=== PATIENT | male | born 1985 | race Two or more races ===

== ENCOUNTER 2016-11-07 03:53 | Emergency (ER) | payer SELFPAY ==
[~2016-11-07] VITALS: Ht 170.2 cm; Wt 70.3 kg
[2016-11-07] MEDS ORDERED: TDAP DIPH,PERTUSS,TET VAC/PF 0.5 ML DISP.SYRIN IM ONE ×2 (04:45→05:01)
[2016-11-07] MEDS ORDERED: HYDROCODONE/APAP 5-325MG TABLET PO ONE ×2 (04:45→05:45)
[2016-11-07] MEDS ORDERED: SODIUM BICARBONATE 4.2 % (NEUT) 5 ML VIAL TP ONE (04:45)
[2016-11-07] MEDS ORDERED: NEOMY/BACITRA/POLYMYXIN B OINT UD PACKET TP ONE ×2 (04:45→05:00)
[2016-11-07] MEDS ORDERED: LIDOCAINE HCL 2% 20 ML VIAL TP ONE (04:45)
[2016-11-07] MEDS ORDERED: LET TOPICAL SOLUTION 8 ML UDC TP ONE (04:45)
[2016-11-07] MEDS ORDERED: HYDROCODONE/APAP 5-325MG TABLET ONE ×2 (05:00→05:56)
[2016-11-07] MEDS ORDERED: LET TOPICAL SOLUTION 8 ML UDC ONE (05:01)
[2016-11-07] MEDS ORDERED: SODIUM BICARBONATE 4.2 % (NEUT) 5 ML VIAL ONE (05:01)
[2016-11-07] MEDS ORDERED: LIDOCAINE HCL 2% 20 ML VIAL ONE (05:01)
--- NOTE | 2016-11-07 05:52 | NUR ---
Patient discharged to home in stable conditon WITH FAMILY TAKING PT HOME. Written and verbal after care instructions given. Patient verbalizes understanding of instructions. WALKED OUT OF ER WITH STEADY GAIT
[2016-11-07 05:53] VITALS: BP 128/75
== END 2016-11-07 05:54 | disposition home or self-care (01) ==
LOC: ER 03:59
DX: S01.01XA Laceration without foreign body of scalp, initial encounter (principal); R51 Headache; F17.200 Nicotine dependence, unspecified, uncomplicated; W01.0XXA Fall on same level from slipping, tripping and stumbling without subsequent striking against object, initial encounter; Y93.89 Activity, other specified; Y99.8 Other external cause status; Y92.89 Other specified places as the place of occurrence of the external cause
CPT/HCPCS: 90715; A4217; A4663; J3490